=== PATIENT | male | born 1965 | race Caucasian/White ===

== ENCOUNTER → 2016-12-18 | Outpatient (CLI) | payer MEDICAID ==
[~2016-12-18] MED LIST: ASPI-621 PO; ATOR40TA PO; BUME1TAB21 PO; CAPT12.52 PO; CARV3.1212 PO; DOCU-131 PO; ENAL2.5T32 PO; FAMO-79 PO; FURO-93 PO; INSU100I28 SQ-INSULIN; MAGN400T26 PO; METF10002 PO; OXYC1TAB7 PO; POTA10TA5 PO; SPIR25TA PO; WARF3TAB7 PO; WARF3TAB7 PO-COUM
== END | disposition home or self-care (01) ==
LOC: CFH 07:03
PROVIDERS: ATTEND Internal Medicine Cardiovascular Disease
DX: I34.0 Nonrheumatic mitral (valve) insufficiency (principal); I51.7 Cardiomegaly; E11.9 Type 2 diabetes mellitus without complications; I25.2 Old myocardial infarction; I10 Essential (primary) hypertension; Z95.1 Presence of aortocoronary bypass graft
CPT/HCPCS: 93306

== ENCOUNTER 2017-04-08 10:55 | Inpatient (IN) | payer MEDICARE, MEDICAID ==
[~2017-04-08] VITALS: Ht 177.8 cm; Wt 93.7 kg
[2017-04-08 11:56] LABS: BASOPHILS # (AUTO) 0.04 x10^3/uL (0-0.1); BASOPHILS % (AUTO) 0 % (0-1); EOSINOPHILS # (AUTO) 0.25 x10^3/uL (0-0.4); EOSINOPHILS % (AUTO) 2 % (1-7); LYMPHOCYTES # (AUTO) 2.75 x10^3/uL (1-3.4); LYMPHOCYTES % (AUTO) 21 % (22-44); MD NO; MEAN CORPUSCULAR HEMOGLOBIN 28.6 pg (27.5-34.5); MEAN CORPUSCULAR VOLUME 84.2 fL (81-97); MEAN PLATELET VOLUME 7.1 fL (7.4-10.4); MONOCYTES # (AUTO) 0.94 x10^3/uL (0.2-0.8); MONOCYTES % (AUTO) 7 % (2-9); NEUTROPHILS # (AUTO) 9.36 x10^3/uL (1.8-6.8); NEUTROPHILS % (AUTO) 70 % (42-75); PLATELET COUNT 390 x10^3/uL (130-400); RED BLOOD COUNT 5.26 x10^6/uL (4.38-5.82); RED CELL DISTRIBUTION WIDTH 13.4 % (9.4-14.8)
[2017-04-08 12:09] LABS: ALANINE AMINOTRANSFERASE 15 U/L (12-78); ALBUMIN 3.1 g/dL (3.4-5.0); ANION GAP 5 mmol/L (5-15); CALCIUM 8.9 mg/dL (8.5-10.1); CHLORIDE 100 mmol/L (98-107)
[2017-04-08 12:11] LABS: ALKALINE PHOSPHATASE 121 U/L (45-117); BILIRUBIN,TOTAL 0.5 mg/dL (0.2-1.0); TOTAL PROTEIN 7.5 g/dL (6.4-8.2)
[2017-04-08] MEDS ORDERED: VANCOMYCIN 2,000 MG in SODIUM CHLORIDE 0.9% 500 ML IV ONE (13:00)
[2017-04-08] MEDS ORDERED: SODIUM CHLORIDE FLUSH 10ML SYR IVF ONE (13:00)
[2017-04-08] MEDS ORDERED: VANCOMYCIN PER PHARMACY MC ONE (13:00)
[2017-04-08 14:00] VITALS: BP 132/76
[2017-04-08] MEDS ORDERED: ACETAMINOPHEN 325 MG TABLET PO PRN (16:30)
[2017-04-08] MEDS ORDERED: ONDANSETRON 2MG/ML, 2ML IVPush PRN (16:30)
[2017-04-08] MEDS: NICOTINE 7 MG/24 HR PATCH.TD24 TD SCH (16:30)
[2017-04-08] MEDS ORDERED: DEXTROSE 4 GM TAB.CHEW PO PRN (16:30)
[2017-04-08] MEDS ORDERED: GLUCAGON 1 MG IM PRN (16:30)
[2017-04-08] MEDS ORDERED: DEXTROSE 50%, 50ML SYRINGE IVPush PRN (16:30)
[2017-04-08] MEDS ORDERED: LACTATED RINGERS 500 ML IV SCH (17:00)
[2017-04-08] MEDS ORDERED: OMNIPAQUE 350 MG/ML, 150 ML BOTTLE ONE (17:00)
[2017-04-08] MEDS: CARVEDILOL 3.125 MG TABLET PO SCH (17:37)
[2017-04-08] MEDS: PIPERACILLIN/TAZO/PMX 4.5GM 100 ML IV SCH (17:38)
[2017-04-08] MEDS ORDERED: CARVEDILOL 3.125 MG TABLET PO SCH (18:00)
[2017-04-08 19:10] VITALS: BP 129/62
[2017-04-08] MEDS: SODIUM CHLORIDE FLUSH 10ML SYR IVF SCH (20:45)
[2017-04-08] MEDS: MUPIROCIN OINT 2%, 22GM TP SCH (20:55)
[2017-04-08] MEDS: INSULIN REGULAR 100 UNITS/ML, 3ML VIAL SQ-INSULIN SCH (21:00)
[2017-04-08] MEDS: ATORVASTATIN 40 MG TABLET PO SCH (21:11)
[2017-04-08] MEDS: INSULIN GLARGINE 100 UNITS/ML, PEN SQ-INSULIN SCH (21:58)
[2017-04-09] MEDS: PIPERACILLIN/TAZO/PMX 4.5GM 100 ML IV SCH ×4 (00:01→17:07)
[2017-04-09 01:42] VITALS: BP 144/74
[2017-04-09] MEDS: CARVEDILOL 3.125 MG TABLET PO SCH ×2 (05:25→17:05)
[2017-04-09] MEDS: ASPIRIN 81 MG TABLET EC PO SCH (05:25)
[2017-04-09 05:55] LABS: BASOPHILS # (AUTO) 0.06 x10^3/uL (0-0.1); BASOPHILS % (AUTO) 1 % (0-1); EOSINOPHILS # (AUTO) 0.41 x10^3/uL (0-0.4); EOSINOPHILS % (AUTO) 4 % (1-7); HCT (SEDRATE) 40.7 % (39.2-51.8); LYMPHOCYTES # (AUTO) 1.96 x10^3/uL (1-3.4); LYMPHOCYTES % (AUTO) 19 % (22-44); MD NO; MEAN CORPUSCULAR HGB CONC 34.2 g/dL (33.2-36.2); MEAN CORPUSCULAR VOLUME 84.6 fL (81-97); MONOCYTES # (AUTO) 0.96 x10^3/uL (0.2-0.8); MONOCYTES % (AUTO) 9 % (2-9); NEUTROPHILS # (AUTO) 7.02 x10^3/uL (1.8-6.8); NEUTROPHILS % (AUTO) 67 % (42-75); PLATELET COUNT 344 x10^3/uL (130-400); RED BLOOD COUNT 4.81 x10^6/uL (4.38-5.82); RED CELL DISTRIBUTION WIDTH 13.1 % (9.4-14.8)
[2017-04-09 05:58] LABS: ANION GAP 6 mmol/L (5-15); CALCIUM 8.9 mg/dL (8.5-10.1); CHLORIDE 104 mmol/L (98-107)
[2017-04-09 06:05] LABS: CREATININE 0.71 mg/dL (0.7-1.3)
[2017-04-09 06:13] LABS: HEMOGLOBIN A1C 8.8 % (4.2-6.3)
[2017-04-09 06:19] LABS: SEDIMENTATION RATE 56 mm/hr (0-10)
[2017-04-09] MEDS: INSULIN REGULAR 100 UNITS/ML, 3ML VIAL SQ-INSULIN SCH ×4 (06:40→20:34)
[2017-04-09] MEDS ORDERED: GADOBUTROL 10 MMOL/10 ML PFS ONE (07:23)
[2017-04-09 07:45] VITALS: BP 135/72
[2017-04-09] MEDS: ENALAPRIL 2.5MG TABLET PO SCH (07:50)
[2017-04-09] MEDS: SODIUM CHLORIDE FLUSH 10ML SYR IVF SCH ×2 (07:50→20:14)
[2017-04-09] MEDS: INSULIN GLARGINE 100 UNITS/ML, PEN SQ-INSULIN SCH ×2 (07:51→20:35)
[2017-04-09] MEDS: NICOTINE 7 MG/24 HR PATCH.TD24 TD SCH (07:51)
[2017-04-09] MEDS ORDERED: ENALAPRIL 2.5MG TABLET PO SCH (09:00)
[2017-04-09] MEDS ORDERED: ENOXAPARIN 40 MG/0.4 ML SQ SCH (09:00)
[2017-04-09] MEDS: MUPIROCIN OINT 2%, 22GM TP SCH ×2 (10:38→20:13)
[2017-04-09 13:57] VITALS: BP 149/80
[2017-04-09 19:41] VITALS: BP 154/83
[2017-04-09] MEDS: ATORVASTATIN 40 MG TABLET PO SCH (20:13)
[2017-04-10 01:26] VITALS: BP 130/76
[2017-04-10] MEDS: PIPERACILLIN/TAZO/PMX 4.5GM 100 ML IV SCH ×5 (05:45→23:47)
[2017-04-10] MEDS: CARVEDILOL 3.125 MG TABLET PO SCH ×2 (05:45→17:42)
[2017-04-10] MEDS: ASPIRIN 81 MG TABLET EC PO SCH (05:45)
[2017-04-10] MEDS: INSULIN REGULAR 100 UNITS/ML, 3ML VIAL SQ-INSULIN SCH ×4 (07:00→20:12)
[2017-04-10 07:43] VITALS: BP 133/79
[2017-04-10] MEDS: ENALAPRIL 2.5MG TABLET PO SCH (08:33)
[2017-04-10] MEDS: MUPIROCIN OINT 2%, 22GM TP SCH ×2 (08:34→20:36)
[2017-04-10] MEDS: NICOTINE 7 MG/24 HR PATCH.TD24 TD SCH (08:34)
[2017-04-10] MEDS: INSULIN GLARGINE 100 UNITS/ML, PEN SQ-INSULIN SCH ×2 (08:34→20:37)
[2017-04-10] MEDS: SODIUM CHLORIDE FLUSH 10ML SYR IVF SCH ×2 (08:35→20:36)
[2017-04-10] MEDS ORDERED: ENOXAPARIN 40 MG/0.4 ML SQ SCH (09:00)
[2017-04-10 14:47] VITALS: BP 128/69
[2017-04-10 19:04] VITALS: BP 130/75
[2017-04-10] MEDS: ATORVASTATIN 40 MG TABLET PO SCH (20:36)
[2017-04-11 02:18] VITALS: BP 130/69
[2017-04-11] MEDS: CARVEDILOL 3.125 MG TABLET PO SCH ×2 (05:35→18:23)
[2017-04-11] MEDS: ASPIRIN 81 MG TABLET EC PO SCH (05:35)
[2017-04-11] MEDS: PIPERACILLIN/TAZO/PMX 4.5GM 100 ML IV SCH (05:35)
[2017-04-11 07:05] VITALS: BP 124/68
[2017-04-11] MEDS: ENALAPRIL 2.5MG TABLET PO SCH (07:57)
[2017-04-11] MEDS: INSULIN GLARGINE 100 UNITS/ML, PEN SQ-INSULIN SCH ×2 (07:58→21:29)
[2017-04-11] MEDS: INSULIN REGULAR 100 UNITS/ML, 3ML VIAL SQ-INSULIN SCH ×4 (07:59→21:29)
[2017-04-11] MEDS: MUPIROCIN OINT 2%, 22GM TP SCH ×2 (07:59→21:00)
[2017-04-11] MEDS: SODIUM CHLORIDE FLUSH 10ML SYR IVF SCH ×2 (07:59→20:38)
[2017-04-11] MEDS: NICOTINE 7 MG/24 HR PATCH.TD24 TD SCH (09:31)
[2017-04-11] MEDS: ERTAPENEM 1 GM in SODIUM CHLORIDE 0.9% 50 ML IV SCH (12:13)
[2017-04-11 13:52] VITALS: BP 143/78
[2017-04-11 19:34] VITALS: BP 127/71
[2017-04-11] MEDS: ATORVASTATIN 40 MG TABLET PO SCH (20:38)
[2017-04-12 02:47] VITALS: BP 133/73
[2017-04-12] MEDS: ASPIRIN 81 MG TABLET EC PO SCH (05:43)
[2017-04-12] MEDS: CARVEDILOL 3.125 MG TABLET PO SCH (05:44)
[2017-04-12] MEDS: INSULIN REGULAR 100 UNITS/ML, 3ML VIAL SQ-INSULIN SCH ×2 (07:00→12:28)
[2017-04-12 08:02] VITALS: BP 130/78
[2017-04-12] MEDS: SODIUM CHLORIDE FLUSH 10ML SYR IVF SCH (09:00)
[2017-04-12] MEDS: INSULIN GLARGINE 100 UNITS/ML, PEN SQ-INSULIN SCH (09:33)
[2017-04-12] MEDS: MUPIROCIN OINT 2%, 22GM TP SCH (09:33)
[2017-04-12] MEDS: ENALAPRIL 2.5MG TABLET PO SCH (09:33)
[2017-04-12] MEDS: NICOTINE 7 MG/24 HR PATCH.TD24 TD SCH (09:33)
[2017-04-12] MEDS ORDERED: ERTA1VIA IV (11:18)
[2017-04-12] MEDS: ERTAPENEM 1 GM in SODIUM CHLORIDE 0.9% 50 ML IV SCH (12:26)
[2017-04-12 13:53] VITALS: BP 144/85
== END 2017-04-12 15:15 | disposition home or self-care (01) | DRG 638 ==
LOC: ED 12:52 → EDIP 12:57 → ED 13:06 → 3NE 13:41 → DCLOUNGE 04-12 15:15
PROVIDERS: ADMIT Hospitalist; ATTEND Hospitalist
PROC: 02HV33Z Insertion of Infusion Device into Superior Vena Cava, Percutaneous Approach (ICD-10-PCS; principal; 2017-04-11)
PROC: B5181ZA Fluoroscopy of Superior Vena Cava using Low Osmolar Contrast, Guidance (ICD-10-PCS; 2017-04-11)
DX: E11.69 Type 2 diabetes mellitus with other specified complication (principal); L03.115 Cellulitis of right lower limb; M86.171 Other acute osteomyelitis, right ankle and foot; E11.40 Type 2 diabetes mellitus with diabetic neuropathy, unspecified; E11.628 Type 2 diabetes mellitus with other skin complications; L02.611 Cutaneous abscess of right foot; E11.610 Type 2 diabetes mellitus with diabetic neuropathic arthropathy; E78.5 Hyperlipidemia, unspecified; E66.9 Obesity, unspecified; I10 Essential (primary) hypertension; I25.10 Atherosclerotic heart disease of native coronary artery without angina pectoris; I70.8 Atherosclerosis of other arteries; L03.031 Cellulitis of right toe; Z79.4 Long term (current) use of insulin; Z82.49 Family history of ischemic heart disease and other diseases of the circulatory system; Z83.3 Family history of diabetes mellitus; Z82.5 Family history of asthma and other chronic lower respiratory diseases; Z90.49 Acquired absence of other specified parts of digestive tract; Z95.1 Presence of aortocoronary bypass graft; F17.210 Nicotine dependence, cigarettes, uncomplicated; Z68.29 Body mass index [BMI] 29.0-29.9, adult
CPT/HCPCS: 36415; 36569; 75635; 76937; 77001; 80048; 80053; 82962; 83036; 83605; 85025; 85651; 86140; 86430; 87040; 87070; 87147; 87205; 99285; A9585; J1335; J1815; J2543; J3370; J7120; Q9967; C1751; J7040

== ENCOUNTER → 2017-04-23 | Outpatient (CLI) | payer MEDICARE, MEDICAID ==
[~2017-04-23] MED LIST changes: +ERTA1VIA IV; +WARF3TAB52 PO; +WARF3TAB52 PO-COUM; -WARF3TAB7 PO; -WARF3TAB7 PO-COUM
== END | disposition home or self-care (01) ==
LOC: CVU 13:41
PROVIDERS: ATTEND Internal Medicine Cardiovascular Disease
DX: M79.89 Other specified soft tissue disorders (principal); E11.9 Type 2 diabetes mellitus without complications; M79.671 Pain in right foot; E78.5 Hyperlipidemia, unspecified; F17.210 Nicotine dependence, cigarettes, uncomplicated
CPT/HCPCS: 93922

== ENCOUNTER → 2017-12-12 | Outpatient (CLI) | payer MEDICARE ==
[2017-12-12 07:12] LABS: ALANINE AMINOTRANSFERASE 28 U/L (12-78); ALBUMIN 3.5 g/dL (3.4-5.0); ANION GAP 6 mmol/L (5-15); CHLORIDE 104 mmol/L (98-107); CREATININE 0.67 mg/dL (0.7-1.3)
[2017-12-12 07:14] LABS: ALKALINE PHOSPHATASE 82 U/L (45-117); BILIRUBIN,TOTAL 0.6 mg/dL (0.2-1.0); CHOL/HDL RATIO 2.7; CHOLESTEROL, TOTAL 92 mg/dL (140-239); HDL CHOL % 37 % (26-37); HDL CHOLESTEROL (DIRECT) 34 mg/dL (40-60); LDL CHOLESTEROL,CALCULATED 38 mg/dL (54-169); LDL/HDL RATIO 1.1 (0.5-3.0); TOTAL PROTEIN 6.9 g/dL (6.4-8.2); TRIGLYCERIDES 102 mg/dL (50-200); VLDL CHOLESTEROL 20 mg/dL (0-25)
== END | disposition home or self-care (01) ==
LOC: LAB 06:41
PROVIDERS: ATTEND Internal Medicine Cardiovascular Disease
DX: E78.2 Mixed hyperlipidemia (principal); I10 Essential (primary) hypertension; Z95.1 Presence of aortocoronary bypass graft
CPT/HCPCS: 36415; 80053; 80061

== ENCOUNTER 2019-04-06 06:43 | Emergency (ER) | payer MEDICARE ==
[~2019-04-06] VITALS: Ht 177.8 cm; Wt 95.1 kg
[~2019-04-06 06:43] MED LIST changes: -ASPI-621 PO; +ASPI81TA45 PO
[2019-04-06 07:25] LABS: MEAN CORPUSCULAR HEMOGLOBIN 29.9 pg (27.5-34.5); MEAN CORPUSCULAR HGB CONC 33.6 g/dL (33.2-36.2); MEAN CORPUSCULAR VOLUME 88.9 fL (81-97); MEAN PLATELET VOLUME 7.1 fL (7.4-10.4); PLATELET COUNT 268 x10^3/uL (130-400); RED BLOOD COUNT 5.39 x10^6/uL (4.38-5.82); RED CELL DISTRIBUTION WIDTH 13.5 % (9.4-14.8)
[2019-04-06 07:36] LABS: ALBUMIN 3.1 g/dL (3.4-5.0); ANION GAP 7 mmol/L (5-15); CALCIUM 8.6 mg/dL (8.5-10.1); CHLORIDE 102 mmol/L (98-107)
[2019-04-06 07:40] LABS: BASOPHILS # (AUTO) 0.04 x10^3/uL (0-0.1); BASOPHILS % (AUTO) 0 % (0-1); EOSINOPHILS # (AUTO) 0.06 x10^3/uL (0-0.4); EOSINOPHILS % (AUTO) 0 % (1-7); LYMPHOCYTES # (AUTO) 1.27 x10^3/uL (1-3.4); LYMPHOCYTES % (AUTO) 9 % (22-44); MD SCAN; MONOCYTES # (AUTO) 1.08 x10^3/uL (0.2-0.8); MONOCYTES % (AUTO) 7 % (2-9); NEUTROPHILS # (AUTO) 12.24 x10^3/uL (1.8-6.8); NEUTROPHILS % (AUTO) 83 % (42-75)
[2019-04-06 07:41] LABS: ALANINE AMINOTRANSFERASE 15 U/L (12-78); ALKALINE PHOSPHATASE 93 U/L (45-117); BILIRUBIN,TOTAL 0.9 mg/dL (0.2-1.0); CREATININE 0.84 mg/dL (0.7-1.3); TOTAL PROTEIN 7.3 g/dL (6.4-8.2)
--- NOTE | 2019-04-06 07:41 | NUR ---
PRECEPTOR RN: PT AMB TO ROOM FROM [facility], BESS CEVALLOS.
--- NOTE | 2019-04-06 07:50 | NUR ---
CONTACT W/ PT THIS IS A 54 YO M W/ C/O PAIN IN RECTUM X4 DAYS AND PAIN W/ URINATION. PT REPORTS LAST BM WAS SUNDAY. DENIES N/V/ABD PAIN. PT UNABLE TO PROVIDE URINE SAMPLE AT THIS TIME. CHRISTIANO IGNACIO IN ROOM FOR EVAL. VS STABLE. PT RESTING ON [email or web address] W/ CALL LIGHT IN REACH. DENIES FUTHER NEEDS AT THIS TIME.
[2019-04-06] MEDS ORDERED: MAGNESIUM CITRATE 300ML ORAL SOL ONE (08:25)
[2019-04-06] MEDS ORDERED: MAGNESIUM CITRATE 300ML ORAL SOL PO ONE (08:30)
--- NOTE | 2019-04-06 08:34 | NUR ---
PT DRANK MAG CITRATE. URINE COLLECTED AND SENT TO LAB.
[2019-04-06 09:05] LABS: MICROSCOPIC AUTO
[2019-04-06 09:06] LABS: CULTURE INDICATED? NO
--- NOTE | 2019-04-06 09:24 | NUR ---
TAP WATER ENEMA COMPLETED. Addendum: 04/06/19 at 0925 by [email or web address] 1L INFUSED.
[2019-04-06 10:24] VITALS: BP 135/64
== END 2019-04-06 10:27 | disposition home or self-care (01) ==
LOC: ED 08:50
DX: K64.4 Residual hemorrhoidal skin tags (principal); K59.00 Constipation, unspecified; I25.2 Old myocardial infarction; I11.0 Hypertensive heart disease with heart failure; I50.9 Heart failure, unspecified; E11.649 Type 2 diabetes mellitus with hypoglycemia without coma
CPT/HCPCS: 36415; 74021; 80053; 81001; 85025; 99285

== ENCOUNTER 2019-08-22 16:43 | Inpatient (IN) | payer MEDICARE ==
[~2019-08-22] VITALS: Ht 177.8 cm; Wt 94.8 kg
--- NOTE | 2019-08-22 17:01 | NUR ---
PT AMBULATED TO ROOM 7 WITH A LARGE WOUND ON LEFT FOOT. PT STATES IT BEGAN 2 WEEKS AGO BUT GOT PROGRESSIVELY WORSE THE PAST 3 DAYS. PT A&OX4, RESP EVEN AND UNLABORED. PT HAS NO OTHER COMPLAINTS AT THIS TIME
[2019-08-22] MEDS ORDERED: SODIUM CHLORIDE FLUSH 10ML SYR IVF ONE (17:30)
[2019-08-22] MEDS ORDERED: SODIUM CHLORIDE 0.9% 1,000ML IVBOLUS ONE (17:30)
[2019-08-22 17:43] LABS: MEAN CORPUSCULAR HEMOGLOBIN 29.6 pg (27.5-34.5); MEAN CORPUSCULAR HGB CONC 33.6 g/dL (33.2-36.2); MEAN CORPUSCULAR VOLUME 88.1 fL (81-97); MEAN PLATELET VOLUME 7.8 fL (7.4-10.4); PLATELET COUNT 268 x10^3/uL (130-400); RED BLOOD COUNT 5.23 x10^6/uL (4.38-5.82); RED CELL DISTRIBUTION WIDTH 13.1 % (9.4-14.8)
[2019-08-22 17:52] LABS: ALANINE AMINOTRANSFERASE 17 U/L (12-78); ALBUMIN 3.2 g/dL (3.4-5.0); ANION GAP 4 mmol/L (5-15); CALCIUM 9.2 mg/dL (8.5-10.1); CHLORIDE 101 mmol/L (98-107)
[2019-08-22 17:54] LABS: ALKALINE PHOSPHATASE 98 U/L (45-117); BILIRUBIN,TOTAL 0.7 mg/dL (0.2-1.0); TOTAL PROTEIN 7.3 g/dL (6.4-8.2)
[2019-08-22 18:05] LABS: BASOPHILS # (AUTO) 0.08 x10^3/uL (0-0.1); BASOPHILS % (AUTO) 1 % (0-1); EOSINOPHILS # (AUTO) 0.14 x10^3/uL (0-0.4); EOSINOPHILS % (AUTO) 1 % (1-7); LYMPHOCYTES # (AUTO) 2.04 x10^3/uL (1-3.4); LYMPHOCYTES % (AUTO) 16 % (22-44); MD SCAN; MONOCYTES # (AUTO) 1.44 x10^3/uL (0.2-0.8); MONOCYTES % (AUTO) 11 % (2-9); NEUTROPHILS % (AUTO) 71 % (42-75)
[2019-08-22] MEDS ORDERED: AMPICILLIN/SULBACTAM 3 GM in SODIUM CHLORIDE 0.9% 100 ML IV ONE (19:30)
--- NOTE | 2019-08-22 19:44 | NUR ---
MRI SCREENING FORM COMPLETED.
--- NOTE | 2019-08-22 20:16 | NUR ---
REPORT CALLED TO CECILY ROGERS. PT TRANSPORTED TO MRI AND WILL GO TO 336 AFTER SCAN.
[2019-08-22] MEDS ORDERED: POLYETHYLENE GLYCOL 17 GM PACKET PO PRN (20:30)
[2019-08-22] MEDS ORDERED: OXYcodone IR 5MG TABLET PO PRN (20:30)
[2019-08-22] MEDS ORDERED: BISACODYL 10 MG SUPP PR PRN (20:30)
[2019-08-22] MEDS ORDERED: ACETAMINOPHEN 325 MG TABLET PO PRN (20:30)
[2019-08-22] MEDS ORDERED: VANCOMYCIN PER PHARMACY MC PRN (20:30)
[2019-08-22] MEDS ORDERED: ONDANSETRON ODT 4 MG PO PRN (20:30)
[2019-08-22] MEDS ORDERED: GADOTERATE 10 MMOL/20 ML SYR ONE (20:32)
[2019-08-22 21:50] VITALS: BP 150/76
[2019-08-22] MEDS: SODIUM CHLORIDE 0.9% 1,000 ML IV SCH (21:52)
[2019-08-22] MEDS ORDERED: PHARMACOKINETIC CONSULTATION MC ONE (22:00)
[2019-08-22] MEDS ORDERED: PHARMACOKINETIC MONITORING MC PRN (22:00)
[2019-08-22] MEDS: NICOTINE 14MG/24 HR PATCH.TD24 TD SCH (22:02)
[2019-08-22] MEDS: ATORVASTATIN 40 MG TABLET PO SCH (22:03)
[2019-08-22] MEDS: metFORMIN 500 MG TABLET PO SCH (22:03)
[2019-08-22] MEDS: HEPARIN 5,000 UNITS/ML, 1ML SQ SCH (22:04)
[2019-08-22] MEDS: PIPERACILLIN/TAZO/PMX 3.375GM 50 ML IV SCH (22:04)
[2019-08-22] MEDS: CARVEDILOL 3.125 MG TABLET PO SCH (22:09)
[2019-08-22] MEDS: VANCOMYCIN 1,900 MG in SODIUM CHLORIDE 0.9% 250 ML IV SCH (22:40)
[2019-08-22] MEDS: INSULIN GLARGINE 100 UNITS/ML, PEN SQ-INSULIN SCH (22:46)
[2019-08-23 01:14] VITALS: BP 114/67
[2019-08-23] MEDS: PIPERACILLIN/TAZO/PMX 3.375GM 50 ML IV SCH ×4 (03:53→22:36)
[2019-08-23] MEDS: CARVEDILOL 3.125 MG TABLET PO SCH ×2 (05:48→17:26)
[2019-08-23] MEDS: ASPIRIN 81 MG TABLET EC PO SCH (05:48)
[2019-08-23] MEDS: HEPARIN 5,000 UNITS/ML, 1ML SQ SCH ×3 (05:49→20:55)
[2019-08-23 06:06] LABS: MEAN CORPUSCULAR HEMOGLOBIN 29.4 pg (27.5-34.5); MEAN CORPUSCULAR HGB CONC 32.9 g/dL (33.2-36.2); MEAN CORPUSCULAR VOLUME 89.4 fL (81-97); MEAN PLATELET VOLUME 7.5 fL (7.4-10.4); PLATELET COUNT 261 x10^3/uL (130-400); RED BLOOD COUNT 5.12 x10^6/uL (4.38-5.82); RED CELL DISTRIBUTION WIDTH 12.9 % (9.4-14.8)
[2019-08-23 06:16] LABS: CALCIUM 8.6 mg/dL (8.5-10.1); CHLORIDE 105 mmol/L (98-107)
[2019-08-23 06:19] LABS: ANION GAP 6 mmol/L (5-15)
[2019-08-23 06:35] LABS: BASOPHILS # (AUTO) 0.04 x10^3/uL (0-0.1); BASOPHILS % (AUTO) 0 % (0-1); EOSINOPHILS % (AUTO) 2 % (1-7); LYMPHOCYTES # (AUTO) 2.21 x10^3/uL (1-3.4); LYMPHOCYTES % (AUTO) 17 % (22-44); MD SCAN; MONOCYTES # (AUTO) 1.29 x10^3/uL (0.2-0.8); MONOCYTES % (AUTO) 10 % (2-9); NEUTROPHILS # (AUTO) 9.03 x10^3/uL (1.8-6.8); NEUTROPHILS % (AUTO) 71 % (42-75)
[2019-08-23 08:01] VITALS: BP 146/91
[2019-08-23] MEDS ORDERED: ENALAPRIL 5MG TABLET ONE (08:49)
[2019-08-23] MEDS: SENNA/DOCUSATE TABLET PO SCH (09:00)
[2019-08-23] MEDS: metFORMIN 500 MG TABLET PO SCH ×2 (09:05→20:55)
[2019-08-23] MEDS: ENALAPRIL 2.5MG TABLET PO SCH (09:06)
[2019-08-23] MEDS: INSULIN GLARGINE 100 UNITS/ML, PEN SQ-INSULIN SCH ×2 (09:06→21:05)
[2019-08-23 13:45] VITALS: BP 118/68
[2019-08-23] MEDS ORDERED: FENTANYL PF 100 MCG/2ML ONE ×2 (13:53→14:16)
[2019-08-23] MEDS ORDERED: MIDAZOLAM 1 MG/ML, 2ML ONE (13:53)
[2019-08-23] MEDS ORDERED: ACETAMINOPHEN 325 MG TABLET PO PRN (14:00)
[2019-08-23] MEDS ORDERED: OXYcodone 5 MG/5 ML ORAL.SOL UDC PO PRN (14:00)
[2019-08-23] MEDS ORDERED: FENTANYL PF 100 MCG/2ML IV PRN (14:00)
[2019-08-23] MEDS ORDERED: PROMETHAZINE 25 MG SUPP PR PRN (14:00)
[2019-08-23] MEDS ORDERED: HYDROmorphone 1 MG/ML, 1ML INJ IVPush PRN (14:00)
[2019-08-23] MEDS ORDERED: PROMETHAZINE 25 MG/ML, 1ML IVPush PRN (14:00)
[2019-08-23] MEDS ORDERED: hydrALAzine 20 MG/ML, 1ML IV PRN (14:00)
[2019-08-23] MEDS ORDERED: ONDANSETRON 2MG/ML, 2ML IVPush PRN (14:00)
[2019-08-23] MEDS ORDERED: LABETALOL 5MG/ML, 20ML IV PRN (14:00)
[2019-08-23] MEDS ORDERED: LIDOCAINE-MPF 2% ,5ML ONE (14:07)
[2019-08-23] MEDS ORDERED: PROPOFOL 10 MG/ML, 20ML ONE (14:07)
[2019-08-23] MEDS ORDERED: ONDANSETRON 2MG/ML, 2ML ONE (14:07)
[2019-08-23] MEDS ORDERED: VANCOMYCIN 1,000 MG ONE (14:24)
[2019-08-23 15:44] VITALS: BP 143/81
[2019-08-23] MEDS: VANCOMYCIN 1,900 MG in SODIUM CHLORIDE 0.9% 250 ML IV SCH (18:28)
[2019-08-23 19:13] VITALS: BP 102/59
[2019-08-23] MEDS: NICOTINE 14MG/24 HR PATCH.TD24 TD SCH (20:54)
[2019-08-23] MEDS: ATORVASTATIN 40 MG TABLET PO SCH (20:55)
[2019-08-23] MEDS: SODIUM CHLORIDE 0.9% 1,000 ML IV SCH (22:36)
[2019-08-24 00:14] VITALS: BP 130/67
[2019-08-24] MEDS: PIPERACILLIN/TAZO/PMX 3.375GM 50 ML IV SCH ×4 (04:19→22:10)
[2019-08-24 06:02] LABS: BASOPHILS # (AUTO) 0.08 x10^3/uL (0-0.1); BASOPHILS % (AUTO) 1 % (0-1); EOSINOPHILS # (AUTO) 0.14 x10^3/uL (0-0.4); EOSINOPHILS % (AUTO) 1 % (1-7); LYMPHOCYTES # (AUTO) 1.86 x10^3/uL (1-3.4); LYMPHOCYTES % (AUTO) 14 % (22-44); MD NO; MEAN CORPUSCULAR HEMOGLOBIN 29.2 pg (27.5-34.5); MEAN CORPUSCULAR HGB CONC 32.7 g/dL (33.2-36.2); MEAN CORPUSCULAR VOLUME 89.2 fL (81-97); MEAN PLATELET VOLUME 7.2 fL (7.4-10.4); MONOCYTES # (AUTO) 1.12 x10^3/uL (0.2-0.8); MONOCYTES % (AUTO) 9 % (2-9); NEUTROPHILS # (AUTO) 9.87 x10^3/uL (1.8-6.8); NEUTROPHILS % (AUTO) 76 % (42-75); PLATELET COUNT 270 x10^3/uL (130-400); RED BLOOD COUNT 4.89 x10^6/uL (4.38-5.82); RED CELL DISTRIBUTION WIDTH 13.1 % (9.4-14.8)
[2019-08-24 06:15] LABS: ANION GAP 3 mmol/L (5-15); CALCIUM 8.6 mg/dL (8.5-10.1); CHLORIDE 105 mmol/L (98-107); CREATININE 0.78 mg/dL (0.7-1.3)
[2019-08-24] MEDS: CARVEDILOL 3.125 MG TABLET PO SCH ×2 (06:34→17:04)
[2019-08-24] MEDS: HEPARIN 5,000 UNITS/ML, 1ML SQ SCH ×3 (06:34→22:10)
[2019-08-24] MEDS: ASPIRIN 81 MG TABLET EC PO SCH (06:34)
[2019-08-24 06:57] VITALS: BP 146/77
[2019-08-24] MEDS: SENNA/DOCUSATE TABLET PO SCH (08:56)
[2019-08-24] MEDS: metFORMIN 500 MG TABLET PO SCH ×2 (08:56→21:30)
[2019-08-24] MEDS: INSULIN GLARGINE 100 UNITS/ML, PEN SQ-INSULIN SCH ×2 (08:57→21:32)
[2019-08-24] MEDS: ENALAPRIL 2.5MG TABLET PO SCH (08:57)
[2019-08-24] MEDS: VANCOMYCIN 1,900 MG in SODIUM CHLORIDE 0.9% 250 ML IV SCH (12:30)
[2019-08-24 13:06] VITALS: BP 121/64
[2019-08-24] MEDS: SODIUM CHLORIDE 0.9% 1,000 ML IV SCH (14:13)
[2019-08-24 17:05] VITALS: BP 125/66
[2019-08-24 18:51] VITALS: BP 138/75
[2019-08-24] MEDS: ATORVASTATIN 40 MG TABLET PO SCH (21:30)
[2019-08-24] MEDS: NICOTINE 14MG/24 HR PATCH.TD24 TD SCH (21:31)
[2019-08-25 00:44] VITALS: BP 139/73
[2019-08-25 04:11] LABS: ANION GAP 2 mmol/L (5-15); CALCIUM 8.7 mg/dL (8.5-10.1); CHLORIDE 107 mmol/L (98-107); CREATININE 0.79 mg/dL (0.7-1.3)
[2019-08-25 04:12] LABS: VANCOMYCIN,TROUGH 7.1 mcg/mL (5.0-10.0)
[2019-08-25 04:14] LABS: BASOPHILS # (AUTO) 0.14 x10^3/uL (0-0.1); BASOPHILS % (AUTO) 1 % (0-1); EOSINOPHILS # (AUTO) 0.37 x10^3/uL (0-0.4); EOSINOPHILS % (AUTO) 4 % (1-7); LYMPHOCYTES # (AUTO) 2.39 x10^3/uL (1-3.4); LYMPHOCYTES % (AUTO) 23 % (22-44); MD NO; MEAN CORPUSCULAR HEMOGLOBIN 29.5 pg (27.5-34.5); MEAN CORPUSCULAR HGB CONC 33.3 g/dL (33.2-36.2); MEAN CORPUSCULAR VOLUME 88.6 fL (81-97); MEAN PLATELET VOLUME 7.3 fL (7.4-10.4); MONOCYTES # (AUTO) 1.13 x10^3/uL (0.2-0.8); MONOCYTES % (AUTO) 11 % (2-9); NEUTROPHILS # (AUTO) 6.36 x10^3/uL (1.8-6.8); NEUTROPHILS % (AUTO) 61 % (42-75); PLATELET COUNT 296 x10^3/uL (130-400); RED BLOOD COUNT 4.77 x10^6/uL (4.38-5.82); RED CELL DISTRIBUTION WIDTH 12.6 % (9.4-14.8)
[2019-08-25] MEDS: PIPERACILLIN/TAZO/PMX 3.375GM 50 ML IV SCH ×4 (04:20→20:33)
[2019-08-25] MEDS: SODIUM CHLORIDE 0.9% 1,000 ML IV SCH ×2 (05:45→17:46)
[2019-08-25] MEDS: HEPARIN 5,000 UNITS/ML, 1ML SQ SCH ×3 (05:45→20:34)
[2019-08-25] MEDS: ASPIRIN 81 MG TABLET EC PO SCH (05:45)
[2019-08-25] MEDS: CARVEDILOL 3.125 MG TABLET PO SCH ×2 (05:46→17:45)
[2019-08-25] MEDS: VANCOMYCIN 1,900 MG in SODIUM CHLORIDE 0.9% 250 ML IV SCH ×2 (07:06→17:29)
[2019-08-25 07:37] VITALS: BP 126/76
[2019-08-25] MEDS: SENNA/DOCUSATE TABLET PO SCH (08:25)
[2019-08-25] MEDS: ENALAPRIL 2.5MG TABLET PO SCH (08:27)
[2019-08-25] MEDS: metFORMIN 500 MG TABLET PO SCH ×2 (08:28→20:33)
[2019-08-25] MEDS: INSULIN GLARGINE 100 UNITS/ML, PEN SQ-INSULIN SCH ×2 (08:33→21:18)
[2019-08-25 13:30] VITALS: BP 136/78
[2019-08-25] MEDS: LACTOBACILLUS CHEW TABLET PO SCH ×2 (18:35→20:32)
[2019-08-25 19:08] VITALS: BP 147/79
[2019-08-25] MEDS: NICOTINE 14MG/24 HR PATCH.TD24 TD SCH (20:33)
[2019-08-25] MEDS: ATORVASTATIN 40 MG TABLET PO SCH (20:33)
[2019-08-26 00:40] VITALS: BP 103/67
[2019-08-26] MEDS: PIPERACILLIN/TAZO/PMX 3.375GM 50 ML IV SCH ×2 (05:22→09:13)
[2019-08-26] MEDS: ASPIRIN 81 MG TABLET EC PO SCH (05:25)
[2019-08-26] MEDS: CARVEDILOL 3.125 MG TABLET PO SCH (05:25)
[2019-08-26 05:27] VITALS: BP 162/83
[2019-08-26 05:58] LABS: BASOPHILS # (AUTO) 0.05 x10^3/uL (0-0.1); BASOPHILS % (AUTO) 1 % (0-1); EOSINOPHILS # (AUTO) 0.35 x10^3/uL (0-0.4); EOSINOPHILS % (AUTO) 4 % (1-7); LYMPHOCYTES # (AUTO) 2.28 x10^3/uL (1-3.4); LYMPHOCYTES % (AUTO) 24 % (22-44); MD NO; MEAN CORPUSCULAR HEMOGLOBIN 29.5 pg (27.5-34.5); MEAN CORPUSCULAR HGB CONC 33.2 g/dL (33.2-36.2); MEAN CORPUSCULAR VOLUME 88.7 fL (81-97); MEAN PLATELET VOLUME 7.4 fL (7.4-10.4); MONOCYTES # (AUTO) 0.83 x10^3/uL (0.2-0.8); MONOCYTES % (AUTO) 9 % (2-9); NEUTROPHILS # (AUTO) 6.04 x10^3/uL (1.8-6.8); NEUTROPHILS % (AUTO) 63 % (42-75); PLATELET COUNT 313 x10^3/uL (130-400); RED CELL DISTRIBUTION WIDTH 12.8 % (9.4-14.8)
[2019-08-26] MEDS: HEPARIN 5,000 UNITS/ML, 1ML SQ SCH (06:37)
[2019-08-26] MEDS: LACTOBACILLUS CHEW TABLET PO SCH ×2 (06:37→09:13)
[2019-08-26 07:04] VITALS: BP 155/82
[2019-08-26] MEDS: SODIUM CHLORIDE 0.9% 1,000 ML IV SCH (08:00)
[2019-08-26] MEDS: SENNA/DOCUSATE TABLET PO SCH (09:00)
[2019-08-26] MEDS: INSULIN GLARGINE 100 UNITS/ML, PEN SQ-INSULIN SCH (09:12)
[2019-08-26] MEDS: metFORMIN 500 MG TABLET PO SCH (09:13)
[2019-08-26] MEDS: ENALAPRIL 2.5MG TABLET PO SCH (09:13)
[2019-08-26] MEDS ORDERED: DOXY100T PO (10:12)
[2019-08-26] MEDS ORDERED: AMOX1TAB64 PO (10:12)
[2019-08-26] MEDS ORDERED: LACT1CAP35 PO (10:12)
[2019-08-26] MEDS: VANCOMYCIN 1,900 MG in SODIUM CHLORIDE 0.9% 250 ML IV SCH (10:57)
== END 2019-08-26 13:54 | disposition home health service (06) | DRG 617 ==
LOC: ED 18:53 → EDIP 19:27 → UNDOADMIN 19:40 → 3N 21:24 → DCLOUNGE 08-26 13:30
PROVIDERS: ADMIT Internal Medicine; ATTEND Internal Medicine
PROC: 0QBP0ZZ Excision of Left Metatarsal, Open Approach (ICD-10-PCS; 2019-08-23)
PROC: 0Y6N0Z9 Detachment at Left Foot, Partial 1st Ray, Open Approach (ICD-10-PCS; principal; 2019-08-23 14:00)
DX: E10.621 Type 1 diabetes mellitus with foot ulcer (principal); E87.1 Hypo-osmolality and hyponatremia; M00.9 Pyogenic arthritis, unspecified; L03.116 Cellulitis of left lower limb; M86.8X7 Other osteomyelitis, ankle and foot; E10.69 Type 1 diabetes mellitus with other specified complication; E10.610 Type 1 diabetes mellitus with diabetic neuropathic arthropathy; D72.820 Lymphocytosis (symptomatic); E10.65 Type 1 diabetes mellitus with hyperglycemia; E78.5 Hyperlipidemia, unspecified; F17.210 Nicotine dependence, cigarettes, uncomplicated; I11.0 Hypertensive heart disease with heart failure; I25.10 Atherosclerotic heart disease of native coronary artery without angina pectoris; I50.9 Heart failure, unspecified; L97.529 Non-pressure chronic ulcer of other part of left foot with unspecified severity; I25.2 Old myocardial infarction; Z56.0 Unemployment, unspecified; Z79.4 Long term (current) use of insulin; Z83.3 Family history of diabetes mellitus; Z95.1 Presence of aortocoronary bypass graft; Z90.49 Acquired absence of other specified parts of digestive tract
CPT/HCPCS: 36415; 80048; 80053; 80202; 82962; 83036; 83605; 84145; 85025; 87015; 87040; 87070; 87075; 87076; 87102; 87116; 87205; 87206; 87635; 88304; 88311; G0378; J0295; J1644; J2250; J2405; J2543; J2704; J3010; J3370; A9575; J1815; J7030; J7050

== ENCOUNTER 2019-09-05 15:13 | Outpatient (CLI) | payer MEDICARE ==
[~2019-09-05 15:13] MED LIST changes: +AMOX1TAB64 PO; +DOXY100T PO; +LACT1CAP35 PO
== END 2019-09-05 23:59 | disposition home or self-care (01) ==
LOC: CFH 15:13
PROVIDERS: ATTEND Internal Medicine Cardiovascular Disease
DX: I11.9 Hypertensive heart disease without heart failure (principal); I08.0 Rheumatic disorders of both mitral and aortic valves; I25.2 Old myocardial infarction; E11.9 Type 2 diabetes mellitus without complications; Z95.1 Presence of aortocoronary bypass graft
CPT/HCPCS: 93306

== ENCOUNTER 2020-05-07 08:19 | Outpatient (CLI) | payer MEDICARE | END 2020-05-07 23:59 | disposition home or self-care (01) | LOC: CVU 08:19 | PROVIDERS: ATTEND Internal Medicine Cardiovascular Disease | DX: I25.10 Atherosclerotic heart disease of native coronary artery without angina pectoris (principal) | CPT/HCPCS: 93880 ==